=== PATIENT | male | born 1940 | race Two or more races ===

== ENCOUNTER 2018-08-05 04:13 | Emergency (ER) | payer OTHER ==
--- NOTE | 2018-08-05 04:30 | EDPHY ---
H & P Stated Complaint: son says pt lost his balance and fell hitting L head on table , no loc, lac Time Seen by Provider: 08/05/18 04:30 HPI/ROS: HPI CHIEF COMPLAINT: Fall, head strike, laceration to left head. HISTORY OF PRESENT ILLNESS: 78-year-old male, presents emergency room by private vehicle after he had a fall this evening. He went out and had alcoholic beverages tonight multiple shots and beer. He arrived home and slipped on some snow inside the house. He fell hitting his left side of his head on a table. He sustained a 5 cm left scalp laceration. Patient reports tetanus shot up-to-date. No LOC. Denies chest pain or shortness of breath, denies neck pain. Not on any anticoagulation. Past Medical History: Hyperlipidemia. Past Surgical History: No recent surgery. Social History: Alcohol this evening. Denies drugs or illicit substances. No tobacco. Family History: Noncontributory ROS REVIEW OF SYSTEMS: 10 Systems were reviewed and negative with the exception of the elements mentioned in the history of present illness. Exam Constitutional triage nursing summary reviewed, vital signs reviewed, awake/ alert. Eyes normal conjunctivae and sclera, EOMI, PERRLA. HENT head/neck: Left-sided temporal laceration in the hairline 5 cm in horizontal length. Otherwise atraumatic head and neck exam. moist mucus membranes, no epistaxis, neck supple/ no meningismus, no raccoon eyes. Respiratory clear to auscultation bilaterally, normal breath sounds, no respiratory distress, no wheezing. Cardiovascular rate normal, regular rhythm, no murmur, no edema, distal pulses normal. Gastrointestinal soft, non-tender, no rebound, no guarding, normal bowel sounds, no distension, no pulsatile mass. Genitourinary no CVA tenderness. Musculoskeletal no midline vertebral tenderness, full range of motion, no calf swelling, no tenderness of extremities, no meningismus, good pulses, neurovascularly intact. Skin pink, warm, & dry, no rash, skin atraumatic. Neurologic awake, alert and oriented x 3, AAOx3, moves all 4 extremities equally, motor intact, sensory intact, CN II-XII intact, normal cerebellar, normal vision, normal speech. Psychiatric normal mood/affect. Heme/Lymph/Immune no lymphadenopathy. Differential Diagnosis: Includes but is not limited to and in no particular order: Head laceration, scalp laceration, soft tissue injury, contusion, skull fracture or intracranial bleed Medical Decision Making: Plan for this patient CT scan head without contrast, will then clean his wound, tetanus shot is up-to-date. He will need gwyn in his wound. Re-evaluation: CT scan head without contrast negative for acute traumatic injury called to me by Dr. Keys. Laceration Repair Procedure: Verbal Consent was obtained, Under sterile conditions, Left Temporal laceration 5CM The wound was copiously irrigated with sterile fluid, the wound was explored for foreign bodies there were none visualized, the wound was explored with a sterile glove to the base. There are no deep structures involved, including no arterial injury. FOUR GWYN placed in this patient's laceration. He had good close approximation of the wound edges. He Tolerated this well. Son at bedside. Patient understands have gwyn removed in 7 days. Return emergency room if there is worsening symptoms questions or concerns. Source: Patient - Medical/Surgical History Hx Asthma: No Hx Chronic Respiratory Disease: No Hx Diabetes: No Hx Cardiac Disease: Yes Hx Renal Disease: No Hx Cirrhosis: No Hx Alcoholism: No Hx HIV/AIDS: No Hx Splenectomy or Spleen Trauma: No Other PMH: hyperlipidemia - Social History Smoking Status: Never smoked Constitutional: Initial Vital Signs Temperature (C) 36.4 C 08/05/18 04:21 Heart Rate 76 08/05/18 04:21 Respiratory Rate 16 08/05/18 04:21 Blood Pressure 123/59 H 08/05/18 04:21 O2 Sat (%) 96 08/05/18 04:21 O2 Delivery Mode Room Air Allergies/Adverse Reactions: Penicillins Allergy (Verified 08/05/18 04:26) Sulfa (Sulfonamide Antibiotics) Allergy (Verified 08/05/18 04:26) Home Medications: Medication Instructions Recorded Lovastatin 08/05/18 TRILIPIX 08/05/18 Vytorin 10-10 mg Tablet 08/05/18 Departure - Departure Disposition: Home, Routine, Self-Care Clinical Impression: Laceration of head Qualifiers: Encounter type: initial encounter Location of open wound of head: scalp Foreign body presence: without foreign body Qualified Code(s): S01.01XA - Laceration without foreign body of scalp, initial encounter Condition: Good Instructions: Laceration (ED), Staple Care (ED) Additional Instructions: 1. Gwyn need to be removed in 7 days. 2. Return to the emergency room if there is worsening symptoms. Referrals: SAUL FLORES [Other] - As per Instructions
[2018-08-05 05:24] VITALS: BP 102/64
== END 2018-08-05 05:29 | disposition home or self-care (01) ==
PROC: 0HQ0XZZ Repair Scalp Skin, External Approach (ICD-10-PCS; principal; 2018-08-05)
DX: S01.01XA Laceration without foreign body of scalp, initial encounter (principal); F10.920 Alcohol use, unspecified with intoxication, uncomplicated; E78.5 Hyperlipidemia, unspecified; W00.0XXA Fall on same level due to ice and snow, initial encounter; Y92.009 Unspecified place in unspecified non-institutional (private) residence as the place of occurrence of the external cause; Y93.9 Activity, unspecified; Y99.9 Unspecified external cause status